=== PATIENT | female | born 1950 | race Caucasian/White ===

== ENCOUNTER 2022-09-16 21:37 | Emergency (ER) | payer MEDICARE, SELFPAY ==
[2022-09-16 21:43] VITALS: BP 98/60; PULSE 103; RESP 20; TEMP 37.4; O2SAT 96; BMI 21.9
[2022-09-17 01:00] VITALS: BP 117/58; PULSE 65; RESP 16; O2SAT 99
[2022-09-17] MEDS: dexAMETHasone 4 MG TABLET PO (02:52)
--- NOTE | 2022-09-17 02:55 | ED.ALLEREA ---
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 She reports she the stinger out she has been stung before but never had an allergic reaction like this. She would significant swelling in her left hand she immediately had itching on the inside of her body and all over then had 1 episode of diarrhea. No tongue swelling lip swelling throat closing or anaphylaxis like reactions. She did take some Benadryl which she said helped. Related Data Home Medications Medication Instructions Recorded Confirmed atorvastatin 10 mg tablet (Lipitor) 10 mg PO HS ##0 12/01/16 estradiol 0.01% (0.1 mg/gram) 1 gm vaginal BID ##0 12/01/16 vaginal cream (Estrace) Allergies Allergy/AdvReac Type Severity Reaction Status Date / Time Sulfa (Sulfonamide Allergy Intermediate RASH Verified 09/16/22 21:53 Antibiotics) [SULFA (SULFONAMIDE ANTIBIOTICS)] Review of Systems Review of Systems ROS Unobtainable: All systems reviewed & are unremarkable except as noted in HPI and below Patient History Surgical History History of splenectomy Status post hysterectomy Status post tonsillectomy and adenoidectomy Family History Father Cancer Mother Heart disease Hypertension High cholesterol Stroke Social History Smoking Status: Never smoker Smoking Status: Never smoker alcohol intake frequency: 0-2 drinks per day Substance Use Type: does not use Exam Initial Vital Signs Initial Vital Signs: Vital Signs Temperature 99.3 F 09/16/22 21:43 Pulse Rate 103 H 09/16/22 21:43 Respiratory Rate 20 09/16/22 21:43 Blood Pressure 98/60 09/16/22 21:43 Pulse Oximetry 96 09/16/22 21:43 Oxygen Delivery Method Room Air 09/16/22 21:43 GENERAL: Very pleasant 72-year-old female CARDIOVASCULAR: peripheral pulses in tact, cap refill <2 sec RESPIRATORY: No respiratory distress, speaks in full sentences without difficulty EXTREMITIES: Normal range of motion, no clubbing or edema. Neurovascularly intact Left hand is swollen mildly erythematous able to finger NEUROLOGICAL: Cranial nerves II through XII grossly intact. Normal gait and speech. SKIN: Left hand swollen erythematous no hives Course Orders Ordered: Discontinued Medications Dexamethasone (Dexamethasone 4 Mg Tablet) 4 mg PO NOW ONE Stop: 09/17/22 02:45 Last Admin: 09/17/22 02:52 Dose: 4 mg Documented By: HNG Vital Signs Vital signs: Vital Signs - 8 hr 09/16/22 21:43 09/17/22 01:00 09/17/22 03:00 Temperature 99.3 F Pulse Rate 103 H 65 65 Respiratory Rate 20 16 18 Blood Pressure 98/60 117/58 L 144/74 H Pulse Oximetry 96 99 99 Oxygen Delivery Method Room Air Room Air Room Air MDM - Allergic Reaction MDM Narrative Medical decision making narrative: Patient is 72-year-old female presents with bee sting to the left hand. Sounds as though she did have an allergic like reaction. She received Benadryl which did seem to help. No sign of anaphylaxis. Unlikely to be cellulitis at this time. She is given 1 dose of dexamethasone here in the emergency department. Recommended supportive care and follow-up. Discharge Plan Departure Patient Disposition: Home Clinical Impression: Accidental bee sting Instructions: How to Care for an Insect Bite or Sting, Insect Allergy Activity Restrictions/Additional Instructions: *You have been diagnosed with bee sting *What to do: At this time no evidence of infection. Likely allergic-type reaction. You were given 1 dose of dexamethasone here in the emergency department *Continue to take medications as directed Benadryl 25-50 mg every 6 hours if needed for itching *Follow up with your primary care provider in 2-3 days or call [phone] *Return to ER if you should have increased swelling difficulty breathing throat closing or any new, worsening or concerning symptoms Prescriptions: No Action atorvastatin [Lipitor] 10 MG tablet 10 mg PO HS Qty: 0 estradiol [Estrace] 0.01 % cream 1 gm Vaginal BID Qty: 0 Referrals: Denise Meadows MD [Primary Care Provider] - Stand Alone Forms: Patient Portal/API
[2022-09-17 03:00] VITALS: BP 144/74; PULSE 65; RESP 18; O2SAT 99
== END 2022-09-17 03:08 | disposition home or self-care (01) ==
PROVIDERS: Emergency Provider Emergency Medicine; PCP Family Medicine
DX: T63.441A Toxic effect of venom of bees, accidental (unintentional), initial encounter (principal); R22.0 Localized swelling, mass and lump, head
CPT/HCPCS: 99283